=== PATIENT | male | born 1945 | race Asian ===

== ENCOUNTER 2024-01-17 12:21 | Emergency (ER) | payer OTHER, SELFPAY ==
[2024-01-17 12:24] VITALS: BP 164/73
[2024-01-17 13:01] LABS: % Basophils 0.5 % (0-2); % Eosinophils 2.7 % (0-6); % Immature Granulocytes 0.2 % (0-0.5); % Lymphocytes 31.6 % (20.5-51.1); % Monocytes 10.9 % (1.7-9.3); % Neutrophils 54.1 % (42.2-75.2); Absolute Eosinophils 0.1 10^3/uL (0-0.7); Absolute Lymphocytes 1.3 10^3/uL (1.2-3.4); Absolute Monocytes 0.5 10^3/uL (0.1-0.6); Absolute Neutrophils 2.2 10^3/uL (1.4-6.5); Hematocrit 34.9 % (39.0-52.0); Hemoglobin 11.7 g/dL (13.0-18.0); Mean Corp Hgb Conc. 33.5 g/dL (33.0-37.0); Mean Corpuscular Hgb 27.9 pg (27.0-31.0); Mean Corpuscular Volume 83.3 fL (80.0-94.0); Mean Platelet Volume 11.2 fL (7.4-10.4); Nucleated Red Blood Cells % 0 % (-); Platelet Count 188 10^3/uL (130-400); Red Blood Cell Count 4.19 10^6/uL (4.70-6.10); Red Cell Dist. Width 14.2 % (11.5-14.5); White Blood Cell Count 4.1 10^3/uL (4.8-10.8)
[2024-01-17 13:09] LABS: ALT (SGPT) 13 U/L (0-50); AST (SGOT) 22 U/L (17-59); Albumin 4.2 g/dl (3.5-5.0); Alkaline Phosphatase 62 U/L (38-126); Blood Urea Nitrogen 21 mg/dl (9-20); Calcium 9.6 mg/dl (8.4-10.2); Carbon Dioxide 26 mmol/L (22-30); Chloride 102 mmol/L (98-107); Glucose 201 mg/dl (70-99); Potassium 5.1 mmol/L (3.5-5.1); Sodium 134 mmol/L (135-145); Total Bilirubin 0.4 mg/dl (0.2-1.3); Total Protein 6.6 g/dl (6.3-8.2); eGFR > 60.00
[2024-01-17] MEDS: TYLENOL 650 MG PO (13:45)
[2024-01-17 13:48] VITALS: BP 156/103
--- NOTE | 2024-01-17 14:05 | ED.GENMED ---
History of Present Illness
General
Chief Complaint: Fall
Source: patient
Exam Limitations: none
Time Seen by Provider: 01/17/24 12:55
Nursing documentation reviewed up to this point in time: agreed with
History of Present Illness
History of Present Illness:
Patient presents to ED secondary to left shoulder injury earlier this morning, when he felt dizzy walking down the steps, outside of his house, and he rolled and fell onto grass, as he attempted to avoid hitting his head. Denies loss of
consciousness. Denies headache. Denies loss of sensation or weakness. Denies preceding chest pain or chest palpitations. Denies nausea or vomiting. Recently, patient has experienced generalized weakness and fatigue when ambulating. Denies
recent change in medications or diet. Denies recent illness.
Past History
Past History
ED Past Medical History: CAD, HTN, Hypercholesterolemia, NIDDM and Other
ED Past Surgical History: Cardiac (CABG)
Social History
Tobacco: Non-smoker
Alcohol: None
Personal:
Living: with family
Family History
Family History: Negative Diabetes, Hypertension or CAD
Review of Systems
Review of Systems
Allergies reviewed?: Yes
All Other Systems: ROS reviewed and negative except as documented in HPI and ROS
Constitutional: Reports no symptoms
EENT: Reports no symptoms
Respiratory: Reports no symptoms
Cardiac: Reports no symptoms
ABD/GI: Reports no symptoms
Musculoskeletal: Reports other (Shoulder pain)
Skin: Reports no symptoms
Neurological: Reports dizzy
Phy Exam
Physical Exam
Physical Exam:
Physical Exam
General: mild painful distress, not acutely ill. afebrile
Head: nc/at. eomi
Neck: supple. no meningeal signs.
Heart: s1/s2 regular rate and rhythm, no murmur. equal radial pulses.
Lungs: no acute respiratory distress. clear bilaterally
Abdomen: normal bowel sounds. not tender.
Neuro: alert and oriented. no focal neurological deficits
Skin: no rash
Psychiatric: well kept. interactive and cooperative
Extremities: no calf tenderness. diffuse left shoulder tenderness to palpation without obvious deformity. left elbow/wrist nontender with normal ROM.
Course
Orders/Labs/Results
Orders:
Orders
01/17/24 12:30
ECG [Electrocardiogram (*1)] Urgent
Reason for Study: Vertigo / Dizzy
EKG- Treatment ONCE
01/17/24 12:43
Complete Blood Count/With Diff Urgent
Comprehensive Metabolic Panel Urgent
01/17/24 13:37
Ice Pack-Treatment DIRECTED
Location: left shoulder
Acetaminophen [Tylenol] 650 mg PO NOW STA
CR Shoulder - Left Min 2 View* Urgent
Comment:
Reason For Exam: trauma
01/17/24 14:34
Orthostatic VS- Treatment ONCE
01/17/24 14:35
0.9% Sodium Chloride 500 ml [Nss] 500 ml IV BOLUS
01/17/24 14:[address] Non Medication Order As Directed
Physician Order: Arm sling
Above order entered?: Yes
Abnormal Lab Results
01/17/24
12:43
WBC 4.1 L 10^3/uL
(4.8-10.8)
RBC 4.19 L 10^6/uL
(4.70-6.10)
Hgb 11.7 L g/dL
(13.0-18.0)
Hct 34.9 L %
(39.0-52.0)
MPV 11.2 H fL
(7.4-10.4)
Monocytes % 10.9 H %
(1.7-9.3)
Sodium 134 L mmol/L
(135-145)
BUN 21 H mg/dl
(9-20)
Glucose 201 H mg/dl
(70-99)
01/17/24 12:43
01/17/24 12:43
Vital Signs
Initial and Last Documented VS:
Initial Vital Signs
Temp Pulse Resp BP Pulse Ox
98.2 F 67 16 164/73 98
01/17/24 12:24 01/17/24 12:24 01/17/24 12:24 01/17/24 12:24 01/17/24 12:24
Last Documented Vital Signs
Temp Pulse Resp BP Pulse Ox
98.2 F 60 18 192/82 100
01/17/24 12:24 01/17/24 15:47 01/17/24 15:47 01/17/24 15:50 01/17/24 15:47
MDM/Problems Addressed
MDM/Problems Addressed:
Shoulder x-ray: no fracture. Pt with likely contusion w strain. Pt will be placed on arm sling. Pt also with nonspecific dizziness and recent weakness, causing dizziness which caused the fall. Pt with unremarkable blood work, EKG and
hemodynamically/neurologically intact. Pt will be discharged home in stable condition, to the care of his family with recommendation to increase fluid intake, along with PCP f/u as outpatient.
*EKG
Interpreted by ED Provider?: Yes
EKG Intrepretation Date: 01/17/24
Heart Rate: 65
Rate: normal
Rhythm: sinus
QRS Pattern: right bundle branch block
*Critical Care Note
Total Time (30-74mins, 75-104mins- exclusive of procedures): Not Applicable
ED Attending Note
-
Portions of this chart may have been created with voice recognition software.� Occasional wrong word or��sound alike� substitutions may have occurred due to the inherent limitations of voice recognition software.
Discharge Plan
Departure
Patient Disposition: Home (Routine Discharge)
Date of Disposition: 01/17/24
Time of Disposition: 15:11
Patient with high blood pressure during this ER visit?: Yes
Condition: Good
Discharge Problem:
Dizziness, Contusion of left shoulder
Instructions: Contusion (DC), Dizziness, Adult ED
Prescriptions:
No Action
carvedilol 12.5 MG tablet
12.5 mg PO BID
omega-3 acid ethyl esters [Lovaza] 1 GM capsule
1 g PO BID
metformin 500 MG tablet
1,000 mg PO BID@0800,1700
lisinopril 20 MG tablet
20 mg PO DAILY
glipizide 5 MG tablet extended release 24hr
10 mg PO DAILY@1700
pioglitazone 45 MG tablet
45 mg PO DAILY@1700
rosuvastatin 20 MG tablet
20 mg PO DAILY
bimatoprost [Lumigan] 1 DROP drops
1 drp BOTH EYES HS
aspirin 81 MG tablet,delayed release (DR/EC)
81 mg PO MOWEFR
prochlorperazine maleate 10 MG tablet
10 mg PO Q8HPRN PRN (Reason: headache and nausea) Qty: 12 0RF
Referrals:
Tong Montague DO [Family Provider] -
Activity Restrictions/Additional Instructions:
As discussed, please increase fluid intake at home, along with reevaluation with your primary care physician as outpatient. Please utilize provided arm sling while awake, along with continual application of ice pack
Interventions
Interventions:
*Risk Screen - Suicide Last Done: 01/17/24 12:47
*General Assessment Last Done: 01/17/24 12:48
*Neglect/Abuse Screening Last Done: 01/17/24 12:47
ED- Fall Risk Assessment Last Done: 01/17/24 15:52
*ED COVID-19 Vaccine History Last Done: 01/17/24 12:48
*Nursing Disposition Last Done: 01/17/24 15:52
ED-Musculoskeletal Assessment Last Done: 01/17/24 13:49
ED- Neurological Assessment Last Done: 01/17/24 13:49
ED-Skin Assessment Last Done: 01/17/24 13:49
Discharge Date and Time
Discharge Date/Time: 01/17/24 15:55
Print Language: HUNGARIAN
[2024-01-17 15:04] VITALS: BP 142/62; BP 179/77; BP 187/83; PULSE 61; PULSE 63; PULSE 68
[2024-01-17] MEDS: NSS 500 IV (15:07)
[2024-01-17 15:50] VITALS: BP 192/82
== END 2024-01-17 15:55 | disposition home or self-care (01) ==
LOC: EMR 12:21
PROVIDERS: EMERGENCY PHYSICIAN Emergency Medicine; FAMILY PHYSICIAN Family Medicine
DX: S40.012A Contusion of left shoulder, initial encounter (principal); W10.9XXA Fall (on) (from) unspecified stairs and steps, initial encounter; I25.10 Atherosclerotic heart disease of native coronary artery without angina pectoris; I10 Essential (primary) hypertension; E78.00 Pure hypercholesterolemia, unspecified; E11.9 Type 2 diabetes mellitus without complications; Z95.1 Presence of aortocoronary bypass graft
CPT/HCPCS: 99283; 96360; 73030; 80053; 85025; 93005

== ENCOUNTER 2025-05-20 03:12 | Observation (INO) | payer OTHER, SELFPAY ==
[2025-05-19 23:02] VITALS: BP 182/78
[2025-05-19 23:27] VITALS: BP 182/78
[2025-05-20] VITALS (7 sets, daily range): BP systolic 93–172; BP diastolic 51–81; PULSE 72–75; BMI 28.0
--- NOTE | 2025-05-20 00:35 | ED.GENMED ---
History of Present Illness
General
Chief Complaint: Fall
Source: patient and family
Exam Limitations: none
Time Seen by Provider: 05/19/25 23:28
Nursing documentation reviewed up to this point in time: agreed with
History of Present Illness
History of Present Illness:
79-year-old male with a past medical history of hypertension, hyperlipidemia, CAD status post CABG, diabetes who presents to the emergency room for evaluation after fall. Patient reportedly was sitting on the couch and stood up to go to bed. He
apparently felt dizzy when he stood up and lost his balance and fell forward. He says he did not pass out. He hit his face on the ground and injured his nose. He had some epistaxis and sustained a minor laceration to the nose. He denies any
other injuries and denies any complaints aside from the nasal injury. Denies headache or neck pain, back pain, rib pain/chest pain. He denies any abdominal pain. Denies any pain in the extremities. He denies being on any blood thinners. Was in
his normal state of health prior to this episode.
Past History
Past History
ED Past Medical History: CAD, HTN, Hypercholesterolemia, NIDDM and Other
ED Past Surgical History: Cardiac (CABG)
Social History
Tobacco: Non-smoker
Alcohol: None
Personal:
Living: with family
Family History
Family History: Negative Diabetes, Hypertension or CAD
Review of Systems
Review of Systems
All Other Systems: ROS reviewed and negative except as documented in HPI and ROS
Constitutional: Denies fever
EENT: Reports other (Nose pain/swelling, nosebleed)
Respiratory: Denies trouble breathing
Cardiac: Denies chest pain, palpitations or syncope
ABD/GI: Denies abdominal pain or nausea
Musculoskeletal: Denies neck pain or back pain
Neurological: Denies dizzy or headache
Phy Exam
Physical Exam
Physical Exam:
General: Awake, alert, oriented x3; no acute distress
Head: Normocephalic, no cephalhematoma
Nose: Patient has swelling and mild leftward deviation of the nasal bridge with tenderness to nasal bridge; he has a very minor superficial laceration approximately 0.5 cm on the right side of the nose which is hemostatic; he has some dried blood in
both naris with no active bleeding, no septal hematoma
Eyes: Conjunctiva normal, EOMI, pupils equal round and reactive to light bilaterally
Throat: Airway intact, handling secretions, good dentition, tongue atraumatic
Neck: Trachea midline, no cervical spine tenderness
Back: No signs of trauma to the back or flank and no tenderness in the thoracic or lumbar spine
Lungs: Clear to auscultation bilaterally, no wheezing, rales, rhonchi
Heart: Regular rate and rhythm, no murmurs, gallops, or rubs appreciated
Abd: Soft, non distended, nontender
Neuro: Grossly intact
Skin: Minor laceration to the nose as described above, no other signs of acute trauma to the skin
Extremities: Atraumatic, nontender, moves all extremities freely without pain; extremities are warm and well-perfused
Scores
Heart Failure Risk
Heart Failure Risk Score: Not Applicable
Heart Score for Chest Pain Patients
STEMI patient?: Not applicable
Withdrawal Assessment of Alcohol
Withdrawal Assessment Completed?: Not applicable
Course
Orders/Labs/Results
Orders:
Orders
05/19/25 23:18
EKG [Electrocardiogram (*1)] Urgent
Reason for Study: Vertigo / Dizzy
EKG- Treatment ONCE
05/19/25 23:40
CT Facial Bones W/o Iv Contras Urgent
Comment:
Reason For Exam: nasal pain and swelling
CT Head W/o Iv Contrast Urgent
Comment:
Reason For Exam: fall with frontal head strike
05/19/25 23:41
Complete Blood Count/With Diff Urgent
Comprehensive Metabolic Panel Urgent
05/20/25 01:06
Oxycodone [Roxicodone] 5 mg PO NOW STA
Abnormal Lab Results
05/20/25
00:26
RBC 4.61 L 10^6/uL
(4.70-6.10)
Hgb 12.6 L g/dL
(13.0-18.0)
MCHC 31.6 L g/dL
(33.0-37.0)
MPV 11.1 H fL
(7.4-10.4)
Abs Immat Gran (auto) 0.1 H 10^3/uL
(0-0.05)
Immature Gran % 0.9 H %
(0-0.5)
Lymphocytes % 19.2 L %
(20.5-51.1)
Sodium 133 L mmol/L
(135-145)
Potassium 5.2 H mmol/L
(3.5-5.1)
Glucose 225 H mg/dl
(70-99)
05/20/25 00:26
05/20/25 00:26
Vital Signs
Initial and Last Documented VS:
Initial Vital Signs
Temp Pulse Resp BP Pulse Ox
36.3 C 71 20 182/78 99
05/19/25 23:02 05/19/25 23:02 05/19/25 23:02 05/19/25 23:02 05/19/25 23:02
Last Documented Vital Signs
Temp Pulse Resp BP Pulse Ox
36.3 C 71 20 182/78 98
05/19/25 23:02 05/19/25 23:02 05/20/25 00:21 05/19/25 23:27 05/20/25 00:41
Procedures
Joint/Fracture Reduction
Nose:
Indication for procedure:: displaced fracture
Procedure completed by: Leobardo Simpson MD
Anesthesia/sedation: 1% Lidocaine and Other (oral pain medication)
Injury was: closed
Further treatement: needs further treatment
Post reduction exam: stable
Nosebleed
Drug treatment: Lidocaine and Epinephrine
Treatment: Merocel packing
Post treatment bleeding: none- good control
MDM/Problems Addressed
Differential Diagnosis Includes:
Lightheadedness: Orthostatic symptoms, anemia, dehydration, dysrhythmia; no murmur to suggest valvular disease
Nasal pain/swelling: Nasal fracture, facial/nasal contusion
MDM/Problems Addressed:
79-year-old male presents for evaluation after a fall�he stood up quickly from the couch to the bed and felt mildly dizzy, lost his balance and fell forward, hit his face on the ground. He insist that he did not pass out. Aside from pain and
swelling in his nose he denies any other acute complaints. Denies being on blood thinners. Hypertensive but otherwise normal vitals. Physical exam as above. Given his cardiac history will plan to check EKG and lab work although low suspicion for
cardiac event�suspect symptoms were from orthostasis. Plan to check CT of the head and facial bones. Reassess after the above.
EKG shows sinus rhythm no change from prior. Labs reviewed and no clinically significant abnormalities�random glucose 225 in the setting of known diabetes and recent meal. CT head negative for any acute abnormalities. CT of the facial bones shows
displaced nasal fracture. Patient was given a dose of oxycodone and topical lidocaine applied and nasal fracture reduction performed at bedside by me. He did have continued epistaxis and Merocel pack. Will continue to monitor for any additional
bleeding.
Patient had continued bleeding required bilateral packing. Family very uncomfortable with him going home at this point as he currently lives with his elderly and she does not feel she can manage with his nosebleeding and is worried about his
dizziness this evening. Overall suspect that the episode of lightheadedness was related to orthostasis but cannot admit for observation, ENT consultation. I did discuss with ENT to see in the morning. Discussed with hospitalist for admission.
Chronic conditions affecting care:
CAD status post CABG
Acute Exacerbation and/or Progression of Chronic Illness:
Acutely hypertensive
Acute Exacerbation and/or Progression of Chronic Illness: HTN
*Radiology
Radiology exam reviewed: radiology read reviewed
*Pulse Oximetry
SaO2: 98
Oxygen Mode of Delivery: Room air
Patient hypoxic: no (98%)
*EKG
Interpreted by ED Provider?: Yes
Heart Rate: 74
Rate: normal
Rhythm: sinus
[place]: normal axis
Interval: normal interval
QRS Pattern: right bundle branch block
Ischemia: no ischemia
*Critical Care Note
Total Time (30-74mins, 75-104mins- exclusive of procedures): Not Applicable
Data Reviewed
Source: patient, records, family and ambulance crew
Patient Management
Social determinants of health affecting care: Living situation
Discussion with other providers: Hospitalist (Discussed with hospitalist) and Patient Service Specialist (Discussed with ENT)
Escalation/DeEscalation of care consider admission/obs:
Admission indicated
ED Attending Note
-
Portions of this chart may have been created with voice recognition software.� Occasional wrong word or��sound alike� substitutions may have occurred due to the inherent limitations of voice recognition software.
Discharge Plan
Departure
Patient with high blood pressure during this ER visit?: Yes
Discharge Problem:
Fracture, nasal, Epistaxis, Pre-syncope
Instructions: Nose Fracture ED
Prescriptions:
New
amoxicillin-pot clavulanate 875-125 mg tablet
1 tab PO BID Qty: 14 0RF
No Action
carvedilol 12.5 MG tablet
12.5 mg PO BID
omega-3 acid ethyl esters [Lovaza] 1 GM capsule
1 g PO BID
metformin 500 MG tablet
1,000 mg PO BID@0800,1700
lisinopril 20 MG tablet
20 mg PO DAILY
glipizide 5 MG tablet extended release 24hr
10 mg PO DAILY@1700
pioglitazone 45 MG tablet
45 mg PO DAILY@1700
rosuvastatin 20 MG tablet
20 mg PO DAILY
bimatoprost [Lumigan] 1 DROP drops
1 drp BOTH EYES HS
aspirin 81 MG tablet,delayed release (DR/EC)
81 mg PO MOWEFR
prochlorperazine maleate 10 MG tablet
10 mg PO Q8HPRN PRN (Reason: headache and nausea) Qty: 12 0RF
Referrals:
Tong Montague DO [Family Provider, Family Practice]
Jaison Hurt MD [Active, Otology] - Call in 1-3 days for appt
Activity Restrictions/Additional Instructions:
You should follow-up with the ENT as soon as possible for further evaluation of your nasal fracture. You are prescribed a prophylactic antibiotic which you should take as prescribed. You did have nasal packing placed in the ER. It must be removed
in 3 days�if you are able to see the ENT you can have it removed in the office there; otherwise you should return here to the ER to have your nasal packing removed in 3 days. If you have continued bleeding or if you develop any new symptoms that
are concerning please return to the ER immediately for reassessment.
Thank you for visiting the Emergency Department at [facility].
1. Please schedule a follow up appointment as directed. Call first thing tomorrow morning to make an appointment.
2. If indicated, please take your medications as instructed and indicated on discharge paperwork.
3. If any of your symptoms do not improve, or persist, or become more severe within 6-12 hours, please return to the emergency department for further care.
4. Please return to the emergency department if you develop a headache, neck pain/stiffness, fever greater than 100.4F, chest pain, shortness of breath, persistent nausea, vomiting, slurred speech, difficulty walking, numbness/tingling, weakness,
signs of infection or any other symptoms that are worrisome to you.
Please call [phone] if you have any questions.
Interventions
Interventions:
*Risk Screen - Suicide Last Done: 05/19/25 23:02
*General Assessment Last Done: 05/19/25 23:02
*Neglect/Abuse Screening Last Done: 05/19/25 23:02
*ED- Fall Risk Assessment Last Done: 05/19/25 23:02
*ED COVID-19 Vaccine History Last Done: 05/19/25 23:02
*ED Influenza Vaccine History Last Done: 05/19/25 23:02
ED-Musculoskeletal Assessment Last Done: 05/20/25 00:20
ED- Neurological Assessment Last Done: 05/20/25 00:20
ED-Skin Assessment Last Done: 05/20/25 00:20
Discharge Date and Time
Print Language: NORWEGIAN
[2025-05-20 00:54] LABS: ALT (SGPT) 17 U/L (0-50); AST (SGOT) 19 U/L (17-59); Albumin 4.3 g/dl (3.5-5.0); Alkaline Phosphatase 63 U/L (38-126); Blood Urea Nitrogen 19 mg/dl (9-20); Calcium 9.9 mg/dl (8.4-10.2); Carbon Dioxide 25 mmol/L (22-30); Chloride 102 mmol/L (98-107); Glucose 225 mg/dl (70-99); Potassium 5.2 mmol/L (3.5-5.1); Sodium 133 mmol/L (135-145); Total Protein 6.9 g/dl (6.3-8.2); eGFR > 60.00
[2025-05-20 00:59] LABS: Hematocrit 39.9 % (39.0-52.0); Hemoglobin 12.6 g/dL (13.0-18.0); Mean Corp Hgb Conc. 31.6 g/dL (33.0-37.0); Mean Corpuscular Volume 86.6 fL (80.0-94.0); Nucleated Red Blood Cells % 0 % (-); Platelet Count 188 10^3/uL (130-400); Red Cell Dist. Width 13.5 % (11.5-14.5)
[2025-05-20] MEDS: ROXICODONE 5 MG PO (01:10)
[2025-05-20] MEDS: AUGMENTIN 875 MG/125 MG 1 TABLET PO ×3 (02:00→20:02)
--- NOTE | 2025-05-20 02:29 | HPS.HSE ---
Family Physician
-
Family Physician: Tong Montague
Chief Complaint
-
Fall, trauma
History of Present Illness
Patient is a 79-year-old who has a past medical history of CAD status post remote CABG in 2002, hypertension, hyperlipidemia, [id number]-akfndpowt diabetes, prior cholecystectomy who presents to the emergency department following a fall at home.
Patient speaks broken Chinese but family interpreted.
He was getting out of from the couch and had a blanket wrapped around him, he fell face onto the floor and had a laceration to his nose. There was no loss of consciousness. He reports feeling unbalanced prior to the fall. It appears to be related
to having his legs wrapped around the blanket and some generalized weakness. Denies any lightheadedness. Denies blurry vision or loss of vision. Denies any chest pain, nausea, palpitations. He denies prior history of lightheadedness and
dizziness, denies history of syncope. No known history of seizures. Denies any recent episodes of diarrhea, vomiting, melena or hematochezia. Has no recent medication changes.
In the emergency department he was afebrile, blood pressure was 150/70 with a pulse of 78 and he was satting 98% on room air. ECG shows a normal sinus rhythm at a rate of 74 with a right bundle branch block which is similar to prior. CBC was
unremarkable with a hemoglobin of 12.6. His electrolytes show a potassium of 5.2 but otherwise unremarkable. BUN and creatinine are stable at 19 and 1.1. Glucose was 225.
CT head without contrast and CT maxillofacial without contrast, no acute intracranial injury, no scalp hematoma or skull fracture, no mass effect. The maxillofacial study shows acute displaced nasal bone fractures and nasal septal fractures, fluid
throughout the nasopharynx. Orbital bonilla and floors are intact. Bilateral globes are symmetric.
Medical History
Past Medical History
Past Medical History: Reports CAD (Status post CABG 2002), HTN, Hypercholesterolemia and NIDDM
Additional Past Medical History:
Choledocholithiasis status post lap geovanna
Past Surgical History: Reports Cardiac (CABG 2022) and Cholecystectomy
Social History
Tobacco: Non-smoker
Alcohol: None
Drug: None
Living: With Family
Family History
Family History: Not pertinent
Allergies / Home Medications
Allergies reflects when Allergies were last updated in [facility].
Home Medications with original date entered in [facility]
Allergy/Medication List:
Allergies
Allergy/AdvReac Type Severity Reaction Status Date / Time
No Known Allergies Allergy Verified 01/17/24 12:26
Home Medications
carvedilol 12.5 mg tablet 12.5 mg PO BID 12/17/18
omega-3 acid ethyl esters 1 gram capsule (Lovaza) 1 g PO BID 01/27/19
aspirin 81 mg tablet,delayed release 81 mg PO MOWEFR 04/16/19
bimatoprost 0.01 % eye drops (Lumigan) 1 drp BOTH EYES HS 04/16/19
glipizide 5 mg tablet, extended release 24 hr 10 mg PO DAILY@1700 04/16/19
lisinopril 20 mg tablet 20 mg PO DAILY 04/16/19
metformin 500 mg tablet 1,000 mg PO BID@0800,1700 04/16/19
pioglitazone 45 mg tablet 45 mg PO DAILY@1700 04/16/19
prochlorperazine maleate 10 mg tablet 10 mg PO Q8HPRN PRN headache and nausea #12 tabs 04/16/19
rosuvastatin 20 mg tablet 20 mg PO DAILY 04/16/19
amoxicillin 875 mg-potassium clavulanate 125 mg tablet 1 tab PO BID #14 tabs 05/20/25
Review of Systems
-
Constitutional: Reports No Symptoms
EENT: Reports Other (Nasal pain, bleeding)
Respiratory: Reports No Symptoms
Cardiac: Reports No Symptoms
Abdomen/GI: Reports No Symptoms
: Reports No Symptoms
Musculoskeletal: Reports No Symptoms
Skin: Reports No Symptoms
Neurological: Reports No Symptoms
Endocrine: Reports No Symptoms
Hematologic/Lymphatic: Reports No Symptoms
Psych: Reports No Symptoms
Physical Exam
Vital Signs
Vital Signs
Temp Pulse Resp BP Pulse Ox
97.4 F 78 20 150/70 98
05/19/25 23:02 05/20/25 01:58 05/20/25 01:58 05/20/25 01:55 05/20/25 00:41
Physical Exam
General: Well Developed, Well Nourished and No Apparent Distress
HEENT: Moist mucous membranes and Other (bilateral nasal packings with old blood, edema of the nasal bridge, mild ecchymoses on the right upper maxillary region)
Respiratory: Clear
Cardiac: S1/S2 and Regular Rhythm; No Murmur or Rub
GI: Soft, Non Tender, Non Distended and Normal Bowel Sounds; No Organomegaly
Rectal: Deferred by Provider
Musculoskeletal: No Clubbing, No Cyanosis and No Edema
Skin: No Rash
Neuro: AO x 3 and Nonfocal/grossly intact
Laboratory Results
-
05/20/25 00:26
05/20/25 00:26
Laboratory Results
Total Bilirubin 0.3 mg/dl (0.2-1.3) 05/20/25 00:26
AST 19 U/L (17-59) 05/20/25 00:26
ALT 17 U/L (0-50) 05/20/25 00:26
Alkaline Phosphatase 63 U/L (38-126) 05/20/25 00:26
Data Reviewed
-
CT Scan: Report Reviewed by me
Medical Tests (Nuc Med, Echo, EKG etc): Image Personally Visualized and interpreted
Lab Data: Labs Reviewed by me
Old Records: Reviewed
Impression/Plan
-
IMPRESSION:
79-year-old with past medical history significant for CAD status post CABG, jvh-[id number]-drwfhgfut diabetes, hypertension, hyperlipidemia who presents to the emergency department following a mechanical fall and suffered a fracture of the nasal bone.
There is acute displaced fracture of the nasal bone and septum with posttraumatic bleeding/epistaxis. He is not on any blood thinners but does take baby aspirin. No acute intracranial changes. Patient is hemodynamically stable and currently in no
acute distress. He has no evidence of syncope or presyncope. ECG shows a normal sinus rhythm with known right bundle branch block no acute ischemic changes.
PLAN:
Fall
� Admit to telemetry observation for now
� Monitor on telemetry for any acute changes
� Check orthostatic vital signs
� PT consultation
Facial fracture - Displaced Nasal bone fracture with hemorrhage, no hematoma. Orbital bonilla and floors are intact. Bilateral globes are symmetric.
- continue ppx antibiotic with augmentin
- maintain nasal packing
- Orbital bonilla and floors are intact. Bilateral globes are symmetric.
- elevated HOB > 30 degrees
- application of cold packs
- Evaluation and possible reduction by ENT in a.m., ENT consulted
Hypertension continue patient's carvedilol and lisinopril
Diabetes
� Continue patient's glipizide ER 5 mg
Continue metformin 500 mg twice daily
DVT prophylaxis�SCDs for now
CODE STATUS�full code
--- NOTE | 2025-05-20 04:28 | PTCARENOTE ---
Pt admit from ED via stretcher. Ambulated into room with assist of 1 without difficulty. Pt's nose edematous and bruised. Small lac R cheek with steri strips intact. Nasal packing intact but still dripping blood. Mustache dsg applied. Language
steward/stewardess economy class used to do admission assessment. HOB elevated.
[2025-05-20 07:53] LABS: Glucose - Point of Care 238 mg/dl (70-99)
--- NOTE | 2025-05-20 07:58 | W.PN.ENT ---
Today's Communication
-
Continue packing for 48hrs and abx.
Impression / Plan
-
The patient is an 79 year old man with cardiac history and fall from standing resulting in a NB fracture which the ER set and epistaxis for which he is packed b/l with good hemostasis. If the patient is cleared from medical standpoint regarding
presyncope/cardiac issues he can f/u in the ENT office this week for packing removal. He should continue antibiotic for staph ppx. If the patient remains inpatient, ENT can remove the packing while in the hospital.
Subjective Data
-
The patient is an 79 year old man who feel from standing after becoming lightheaded. He sustained a nasal bone fracture which was reduced in the ER. He had continued epistaxis and was packed by the ER with merocel. He denies bleeding since then.
There is no h/o recurrent epistaxis. He does take 81mg ASA daily.
Objective Data
-
Vital Signs
Temp Pulse Resp BP Pulse Ox
98.9 F 83 21 159/80 97
05/20/25 04:04 05/20/25 04:04 05/20/25 04:04 05/20/25 04:04 05/20/25 04:04
Intake & Output
05/19/25 05/20/25 05/21/25
06:59 06:59 06:59
Intake:
Oral fluids 0 / 0
Other:
Number of approximated MODERATE 2
amounts of urine
Lab Results
05/20/25 00:26
05/20/25 00:26
Calcium 9.9 mg/dl (8.4-10.2) 05/20/25 00:26
Total Bilirubin 0.3 mg/dl (0.2-1.3) 05/20/25 00:26
AST 19 U/L (17-59) 05/20/25 00:26
ALT 17 U/L (0-50) 05/20/25 00:26
Alkaline Phosphatase 63 U/L (38-126) 05/20/25 00:26
Physical Exam
-
GEN: NAD, alert, limited Austrian
HEENT: Edema of the nasal dorsum, dressed laceration right side, bilateral merocel in place. OC/OP dry, no active bleeding.
Data Reviewed
-
Radiology Results: Report Reviewed
[2025-05-20] MEDS: GLUCOPHAGE 1000 MG PO ×2 (09:02→18:42)
[2025-05-20] MEDS: ZESTRIL 20 MG PO (09:04)
[2025-05-20] MEDS: COREG 12.5 MG PO ×2 (09:05→20:02)
[2025-05-20] MEDS: CRESTOR 20 MG PO (09:05)
--- NOTE | 2025-05-20 11:25 | CM ---
Patient seen bedside w/ son and daughter in law, initial assessment completed. Son assisted w/ translation, patient speaks limited Divehi. Patient is a 79-year-old who has a past medical history of CAD status post remote CABG in 2002, hypertension,
hyperlipidemia, cig-qbhmohw-skbwptows diabetes, prior cholecystectomy who presents to the emergency department following a fall at home.
Patient resides w/ spouse in a single story home, 3 or 4 steps to enter. Patient is independent w/ cane, spouse assists w/ADLs. Denies SNF. OP PT hx. Patient stated a nurse comes sees him once a year through his insurance.
Address, point of contact and insurance verified. Patient's son, Amtoun, requested to be added as a secondary contact. Updated admissions.
PCP: Tong Montague
Pharmacy: [facility]
Patient admitted under obs services. OOBS form verbally reviewed, copy provided, copy on chart
PT evaluated today, recommending home w/ home PT
Plan: Home w/ HH recommendation
[2025-05-20 12:52] LABS: Glucose - Point of Care 164 mg/dl (70-99)
--- NOTE | 2025-05-20 13:33 | W.PN.UPDATE ---
Addendum entered and electronically signed by Kobi Hunter MD 05/20/25 18:27:
RN reported that patient and family does not want patient blood glucose to be checked.
Patient apparently has been managed with oral medication and is very against getting any kind of glucose check or insulin provided
Based on blood glucose review patient blood glucose running between 150-250 range suggestive of somewhat uncontrolled diabetes, although in light of patient/family refusal with further therapy, will continue with oral medication. Discontinue
further Accu-Cheks for the hospital stay.
Original Note:
Update Note
Progress Note Update
Nonbillable note
Epistaxis, nasal fracture from mechanical fall-evaluated by ENT. Recommended to be maintained on nasal packing for 48 hours. No ongoing postnasal drip. Patient with some nasal discomfort although not having any excessive pain. Continue monitoring
Orthostatic hypotension -orthostatic vital checks in the morning showed supine blood pressure of 185 with standing dropping to 145. There was questionable report of patient feeling dizzy when patient fell although story later changed to it was trip
and fall with patient. Nonetheless patient have history of bypass in the past and at risk of cardiac complication continue monitoring. Will continue with current home blood pressure medication regimen, and adjust as needed
Patient Lithuanian speaking and son at bedside during the rounds
--- NOTE | 2025-05-20 18:26 | PTCARENOTE ---
Spent 50 minutes, collectively, educating patient and family on care and management of diabetes. Education included rationales for poc glucose checks, medications, and insulin (which patient was refusing all shift), and timing of medication
administration with glucose checks. Despite all education from RN (utilizing frisian calender roll operator), patient and patient family still demanding RN administer glipizide and metformin to patient without confirming glucose. RN explained to family and
patient that she could not administer a hypoglycemic agent without first knowing poc glucose level, as that would not be proper medication administration.
Patient family member began following RN into other patients rooms, demanding I give medications, after explanation. Patient also began to accuse RN of not providing him with breakfast- which is untrue- as RN was in room when kitchen delivered him
am breakfast (pancakes and oatmeal). RN asked patient at breakfast if he wanted me to order him something different, patient said no, that the pancakes were fine. Patient shook his head in front of his family. Patient began to shoo RN out of the
room. RN excused self from room to call nursing supervisory clerk and cross cover hospitalist.
Ultimately, poc glucose checks and insulin were discontinued by MD due to patients refusal.
Medication reconciliation incomplete due to patient and patient having incomplete documentation of up to date medication list/they both do not know all of what he takes/doses of meds/how often he is supposed to take meds.
[2025-05-20] MEDS: GLUCOTROL XL (EXTENDED RELEASE) 10 MG PO (18:42)
[2025-05-20] MEDS: XALATAN OPHTHALMIC SOLUTION 1 DROP BOTH EYES (20:04)
[2025-05-21 06:21] LABS: Hematocrit 31.7 % (39.0-52.0); Hemoglobin 10.5 g/dL (13.0-18.0); Mean Corp Hgb Conc. 33.1 g/dL (33.0-37.0); Mean Corpuscular Volume 82.8 fL (80.0-94.0); Platelet Count 172 10^3/uL (130-400); Red Cell Dist. Width 13.7 % (11.5-14.5)
[2025-05-21 07:00] LABS: Blood Urea Nitrogen 35 mg/dl (9-20); Calcium 9.4 mg/dl (8.4-10.2); Carbon Dioxide 25 mmol/L (22-30); Chloride 105 mmol/L (98-107); Estimated Creatinine Clearance 34 ml/min; Glucose 83 mg/dl (70-99); Potassium 5.5 mmol/L (3.5-5.1); Sodium 135 mmol/L (135-145); eGFR 46.48
[2025-05-21 07:35] VITALS: BP 139/65
[2025-05-21] MEDS: AUGMENTIN 875 MG/125 MG 1 TABLET PO (09:18)
[2025-05-21] MEDS: GLUCOPHAGE 1000 MG PO (09:18)
[2025-05-21] MEDS: COREG 12.5 MG PO (09:18)
[2025-05-21] MEDS: CRESTOR 20 MG PO (09:18)
[2025-05-21] MEDS: ZESTRIL 20 MG PO (09:18)
[2025-05-21 10:16] VITALS: BP 124/62; PULSE 73
--- NOTE | 2025-05-21 11:42 | W.PN.HOSP.TC ---
Today's Communication/Plan
-
see note
Assessment / Plan
Assessment / Plan
Nasal fracture
Epistaxis
- CT facial bone showing comminuted fractures of the nasal bones and anterior bony nasal septum, mainly displaced toward the left.
- Bilateral nasal packing in place
- ENT evaluated -patient requesting nasal packing to come out, requested ENT for re-evaluation
Mechanical fall
- Reported trip and fall. There was some question of this being orthostatic/dizziness.
- No reported issue of balance in the past
- Orthostatic vitals were positive at points although, may have measurement error.
JOSE
Hyperkalemia
-Patient have worsening renal function
- IV fluid ordered although patient have declined to have peripheral IV line placed or get IVF, will discuss with family as well
- Low potassium diet/oral lokelma ordered
- Renal dysfunction driven from lisinopril and volume depletion and in turn causing hyperkalemia
Type II DM - uncontrolled
- Patient have declined to get subcu insulin
-Currently being maintained on metformin and glipizide only -with worsening renal function metformin likely will need to be stopped tomorrow if not improved
Essential Hypertension
- Continue home dose of Coreg, lisinopril held
DVT prophylaxis�SCDs for now
CODE STATUS�full code
Discussed care plan with ENT
Total time spent ; 54 mins
Anticipated Discharge: Within 24 hours
Subjective/Interval History
-
Date of Service: May 21, 2025
Limited history gathering -language line not working/not family present at bedside to help with history taking
Complaining pain in the nose requesting nasal packing to be taken out
Objective Data
-
Labs:
Laboratory Results
05/21/25
06:04
WBC 6.4
Hgb 10.5 L
Hct 31.7 L
Plt Count 172
Sodium 135
Potassium 5.5 H
Chloride 105
Carbon Dioxide 25
BUN 35 H
Creatinine 1.5 H
Glucose 83
Calcium 9.4
Vital Signs:
Vital Signs
Temp Pulse Resp BP Pulse Ox
98.6 F 68 16 115/51 97
05/21/25 07:35 05/21/25 09:18 05/21/25 07:35 05/21/25 09:18 05/21/25 07:35
I&O
05/20/25 05/21/25 05/22/25
06:59 06:59 06:59
Intake Total 0 / 0 960 / 960
Balance 0 / 0 960 / 960
Review of Systems
-
Unable to obtain full review of systems at this time due to: Language Barrier
Physical Exam
-
General: Comfortable
HEENT: Other (bilateral nasal packing, no fresh blood, clear dayday-pharynx); Negative Oxygen
Neuro: Awake, Alert, Oriented and No Motor Deficits
--- NOTE | 2025-05-21 11:57 | W.PN.UPDATE ---
Update Note
Progress Note Update
No bleeding with packing in place
Nose - bilat packs
OC - dry
A/P Epistaxis/nasal fx
OK to discharge pt
would leave packing in place until Monday, can come to office for packing removal
would send pt home on Amox 500 mg BID x 5 days
[2025-05-21] MEDS: LOKELMA 10 GRAM PO (12:17)
--- NOTE | 2025-05-21 12:22 | CM ---
Patient will d/c home today
PT- home PT recommended
Left message w/ son
[facility] referral completed
[facility]

Plan: Home w/ [facility]
--- NOTE | 2025-05-21 13:07 | W.DCSUMMARY ---
Discharge Summary
Discharge Data
Date of Admission: 05/20/25
Date of Discharge: 05/21/25
-
Pending Results: No
Hospital Course
Discharging Physician : Dr Kobi Hunter
Disposition : To home
Primary care physician : Dr Tong Montague
Principal Discharge diagnosis :
Mechanical fall
Nasal fracture
Epistaxis
Acute kidney injury
Hyperkalemia
Chronic Discharge diagnosis :
Type 2 diabetes mellitus
Essential hypertension
History of coronary artery bypass
Hyperlipidemia
Hospital Course :
Patient is a 79-year-old male with past medical history, who was brought into ER after having a trip and fall at home. Patient was apparently tripped in bedding sheet and fell on floor. Patient ended up having facial injury and resulting
nosebleed. In ER CT of facial bones showed nasal septal fracture. ENT was involved in care and bilateral nasal cavities were packed to help prevent epistaxis. Patient was monitored in the hospital for next 48 hours. Patient was discharged home
with packing in place with patient to follow-up with ENT in office day after discharge for removal and further intervention if needed
Patient also had associated renal dysfunction and hyperkalemia from that, patient takes lisinopril which was instructed to be held. Patient instructed to be on low potassium diet. IV fluid was recommended although patient declined peripheral IV
line to be placed or IV hydration to be given. Patient encouraged to increase oral intake postdischarge. A follow-up BMP prescription has been provided for patient to have an outpatient blood work done in 48 hours.
Important imaging findings :
None
Procedure findings :
None
Discharge Plan
-
Patient Disposition: Home (Routine Discharge)
Discharge Diagnosis/Procedures: Epistaxis from nasal fracture, Acute kidney injury, Hyperkalemia
Condition: Fair
Diet: Other diet
Additional Diets: 2g Potassium diet for next 3 days. Increase water intake for next few days
Activity: As tolerated
Driving Restrictions: No driving
Bathing Restrictions: OK to Shower
Blood Work: Repeat blood work - BMP in 48 hrs
Referrals:
Tong Montague DO [Family Provider, Family Practice] - in one week
Lemuel Mesa MD [Active, ENT] - 05/23/25
Prescriptions:
New
amoxicillin-pot clavulanate 875-125 mg tablet
1 tab PO BID Qty: 14 0RF
Continued
carvedilol 12.5 MG tablet
12.5 mg PO BID
omega-3 acid ethyl esters [Lovaza] 1 GM capsule
1 g PO BID
metformin 500 MG tablet
1,000 mg PO BID@0800,1700
glipizide 5 MG tablet extended release 24hr
10 mg PO DAILY@1700
pioglitazone 45 MG tablet
45 mg PO DAILY@1700
rosuvastatin 20 MG tablet
20 mg PO DAILY
Lumigan 1 DROP drops
1 drp BOTH EYES HS
aspirin 81 MG tablet,delayed release (DR/EC)
81 mg PO MOWEFR
prochlorperazine maleate 10 MG tablet
10 mg PO Q8HPRN PRN (Reason: headache and nausea) Qty: 12 0RF
Held
lisinopril 20 MG tablet
20 mg PO DAILY
Hold Instructions: Resume on 05/24/25.
Discharge Orders:
Discharge Patient (As Directed); Ordered 05/21/25
Ordered By: Kobi Hunter
Discharge Date and Time
Print Language: KINYARWANDA
== END 2025-05-21 13:00 | disposition home or self-care (01) ==
LOC: 4 EAST ACU 03:12
PROVIDERS: ADMITTING PHYSICIAN Internal Medicine; ATTENDING PHYSICIAN Hospitalist; CONSULT PHYSICIAN Otolaryngology; EMERGENCY PHYSICIAN Emergency Medicine; FAMILY PHYSICIAN Family Medicine
DX: S02.2XXA Fracture of nasal bones, initial encounter for closed fracture (principal); R42 Dizziness and giddiness; R55 Syncope and collapse; R04.0 Epistaxis; N17.9 Acute kidney failure, unspecified; E87.5 Hyperkalemia; E86.9 Volume depletion, unspecified; S01.21XA Laceration without foreign body of nose, initial encounter; W01.0XXA Fall on same level from slipping, tripping and stumbling without subsequent striking against object, initial encounter; Y93.89 Activity, other specified; Y92.008 Other place in unspecified non-institutional (private) residence as the place of occurrence of the external cause; I10 Essential (primary) hypertension; E11.29 Type 2 diabetes mellitus with other diabetic kidney complication; E11.65 Type 2 diabetes mellitus with hyperglycemia; I25.10 Atherosclerotic heart disease of native coronary artery without angina pectoris; E78.00 Pure hypercholesterolemia, unspecified; I45.10 Unspecified right bundle-branch block; Z79.84 Long term (current) use of oral hypoglycemic drugs; Z79.82 Long term (current) use of aspirin; Z90.49 Acquired absence of other specified parts of digestive tract; Z95.1 Presence of aortocoronary bypass graft
CPT/HCPCS: 21315; 30901; 70450; 70486; 80048; 80053; 82962; 85025; 85027; 93005; 97162; 97530; G0378